=== PATIENT | female | born 1960 | race Caucasian/White ===

== ENCOUNTER 2017-10-24 16:08 | Outpatient (CLI) | payer BC | END 2017-10-24 16:09 | disposition home or self-care (01) | LOC: BICMAMMO 16:08 | PROVIDERS: ATTEND Obstetrics & Gynecology | DX: Z12.31 Encounter for screening mammogram for malignant neoplasm of breast (principal); Z80.3 Family history of malignant neoplasm of breast | CPT/HCPCS: 77063; 77067 ==

== ENCOUNTER 2018-05-30 16:48 | Outpatient (CLI) | payer BC ==
[2018-05-30 17:18] LABS: Hemoglobin 13.8 g/dL (12.0-16.0); Mean Corpuscular HGB CONC 32.6 g/dL (32.0-36.0); Mean Corpuscular Hemoglobin 29.7 pg (27.0-31.0); Mean Corpuscular Volume 91.1 fL (78.0-98.0); Mean Platelet Volume 7.3 fL (7.4-10.4); Platelet Count 344 thou/uL (130-400); RBC Distribution Width 12.3 % (11.5-14.5); Red Blood Cell (RBC) Count 4.65 mill/uL (4.20-5.40); White Blood Cell (WBC) Count 13.8 thou/uL (4.8-10.8)
[2018-05-30 17:54] LABS: Anion Gap 16 mmol/L (10-20); BUN (Urea Nitrogen) 16 mg/dL (9.8-20.1); Calc. Creatinine Clearance 0 mL/min (70-130); Calcium 9.9 mg/dL (7.8-10.44); Carbon Dioxide 24 mmol/L (22-29); Chloride 103 mmol/L (98-107); Estimated GFR-MDRD 64; Glucose 97 mg/dL (70-105); Potassium 4.6 mmol/L (3.5-5.1); Sodium 138 mmol/L (136-145)
--- NOTE | 2018-05-31 12:31 | EKG ---
Test Reason : Blood Pressure : / mmHG Vent. Rate : 087 BPM Atrial Rate : 087 BPM P-R Int : 128 ms QRS Dur : 082 ms QT Int : 348 ms P-R-T Axes : 063 001 060 degrees QTc Int : 418 ms Normal sinus rhythm Nonspecific T wave abnormality Abnormal ECG No previous ECGs available Confirmed by MIAN CAGLE ([id number]) on 05/31/2018 12:31:17 PM Referred By: NICHOL Confirmed By:MIAN CAGLE
== END 2018-05-30 16:49 | disposition home or self-care (01) ==
LOC: LABBT 16:48
PROVIDERS: ATTEND Orthopaedic Surgery
DX: Z01.818 Encounter for other preprocedural examination (principal); S83.242A Other tear of medial meniscus, current injury, left knee, initial encounter
CPT/HCPCS: 80048; 85027; 93005; 93010

== ENCOUNTER 2018-06-06 09:23 | Day surgery (SDC) | payer BC ==
[2018-05-30 17:08] VITALS: BMI 34.7
[2018-06-06] MEDS ORDERED: CEFAZOLIN 2 GM/50 ML BAG ONE (10:14)
[2018-06-06] MEDS ORDERED: Fentanyl 100 MCG/2 ML VIAL ONE (13:21)
[2018-06-06] MEDS ORDERED: Bupivacaine HCl 0.5%/Epinephrine 1:200,000/PF 30 ml Vial ONE (13:55)
[2018-06-06] MEDS ORDERED: Ketorolac Tromethamine 30 MG/ML VIAL ONE (20:09)
[2018-06-06] MEDS ORDERED: Ondansetron PF 4 MG/2 ML Vial ONE (20:09)
[2018-06-06] MEDS ORDERED: Lidocaine 1% PF 5 ML VIAL ONE (20:09)
[2018-06-06] MEDS ORDERED: PROPOFOL 200 MG/20 ML VIAL ONE (20:09)
--- NOTE | 2018-06-06 21:28 | OP ---
DATE OF PROCEDURE: 06/06/2018 PREOPERATIVE DIAGNOSIS: Tear of the posterior horn of the medial meniscus and possible loose bodies. 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 PROCEDURE PERFORMED: Arthroscopy of the left knee with partial medial meniscectomy and shaving of all 3 compartments. ANESTHESIA: General. DESCRIPTION OF PROCEDURE: The patient was given preoperative IV antibiotics, taken to the operating room, and placed in supine position. Satisfactory general anesthesia was performed. The left lower extremity was placed in a leg bryan and sterilely prepped and draped in usual fashion. After exsanguination, tourniquet in the proximal thigh was raised to 250 mmHg. The knee was scoped through the usual anterior medial and anterior lateral portals. Upon entering the suprapatellar pouch, the patient was noted to have significant synovitis. Partial synovectomy was performed. There was fibrillating cartilage under the patella, and this was smoothed down with a shaver. There was significant narrowing of the articular cartilage in the femoral groove. The intercondylar notch revealed intact anterior cruciate ligament. The lateral compartment showed fairly normal firm articular cartilage over the lateral femoral condyle, but there was significant softening and chondromalacia of the lateral tibial plateau. The lateral meniscus thoroughly inspected and probed. It was free of pathology. The medial compartment had chondral flaps and thinning of the articular cartilage over the medial femoral condyle. There was some damage to the medial tibial plateau. There was a complex tear of the body and into the posterior horn of the medial meniscus. A partial medial meniscectomy was performed using the shaver and ArthroWand. During the procedure, all debris was irrigated out of the knee joint. The instruments were removed. Portals were closed with 3-0 Rapide. Knee joint was injected with 30 mL of 0.5% Marcaine with epinephrine. Sterile dressing was applied. Tourniquet was released. Leg was taken out of the leg bryan. The patient was awakened, extubated, and transferred to recovery room in stable condition. ESTIMATED BLOOD LOSS: None. COMPLICATION: None. TOURNIQUET TIME: 23 minutes. PAIN MEDICINE: Tylenol No. 4 one every 4 to 6 hours as needed for pain, #50. FOLLOWUP: Follow up in my office next week. Job ID: [id number]
== END 2018-06-06 16:10 | disposition home or self-care (01) ==
LOC: SDC 09:23
PROVIDERS: ATTEND Orthopaedic Surgery
PROC: 0SBD4ZZ Excision of Left Knee Joint, Percutaneous Endoscopic Approach (ICD-10-PCS; principal; 2018-06-06)
DX: S83.232A Complex tear of medial meniscus, current injury, left knee, initial encounter (principal); M94.262 Chondromalacia, left knee; M65.88 Other synovitis and tenosynovitis, other site; Z88.2 Allergy status to sulfonamides
CPT/HCPCS: J0670; J1885; J2001; J2405; J2704; J3010

== ENCOUNTER 2021-01-18 14:46 | Outpatient (CLI) | payer OTHER | END 2021-01-18 14:47 | disposition home or self-care (01) | LOC: BICRAD 14:46 | PROVIDERS: ATTEND Podiatrist | DX: M25.572 Pain in left ankle and joints of left foot (principal) ==